=== PATIENT | female | born 1980 | race Caucasian/White ===

== ENCOUNTER 2019-04-05 14:40 | Day surgery (SDC) | payer BC ==
[2019-04-05] MEDS ORDERED: Lidocaine 1% 30 ML SDV ONE (15:02)
[2019-04-05] MEDS ORDERED: Scopolamine 1.5 MG Transdermal Patch TRDERM PRN (15:02)
[2019-04-05] MEDS ORDERED: Lidocaine 1%/Sod Bicarbonate in NS 8.4% 1 ML Syringe IDERM PRN (15:04)
[2019-04-05] MEDS ORDERED: Sodium Chloride 0.9% 10 ML Syringe FLUSH PRN (15:04)
[2019-04-05] MEDS ORDERED: Lactated Ringers 1,000 ML IV SCH (15:15)
--- NOTE | 2019-04-05 15:26 | PCM.PREANE ---
Preanesthetic Assessment - Procedure Proposed Procedure: Laparoscopic Cholecystectomy - Anesthesia/Transfusion/Family Hx Type of Anesthesia Reaction: Excessive Nausea/Vomiting Family History of Anesthesia Reaction: No - Review of Systems Gastrointestinal: No Symptoms Neurological: No Symptoms Other: Reports: None - Physical Assessment NPO Status Date: 04/04/19 NPO Status Time: 20:00 Height: 5 ft 7 in Weight: 123 kg ASA Class: 2E Mental Status: Alert & Oriented x3 Airway Class: Mallampati = 3 Dentition: Reports: Normal Dentition ROM/Head Extension: Full Lungs: Clear to Auscultation, Normal Respiratory Effort Cardiovascular: Regular Rate, Regular Rhythm - Anesthesia Plan Pre-Op Medication Ordered: Anxiolytic - Acknowledgements Anesthesia Type Planned: General Anesthesia Pt an Appropriate Candidate for the Planned Anesthesia: Yes Alternatives and Risks of Anesthesia Discussed w Pt/Guardian: Yes Pt/Guardian Understands and Agrees with Anesthesia Plan: Yes PreAnesthesia Questionnaire HEENT History: Reports: None Cardiovascular History: Reports: None Respiratory History: Reports: None Gastrointestinal History: Reports: None Genitourinary History: Reports: None 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: 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 Musculoskeletal History: Reports: None Neurological History: Reports: None, Migraines Psychiatric History: Reports: Anxiety, Depression Endocrine/Metabolic History: Reports: None, Obesity/BMI 30+ Hematologic History: Reports: None Immunologic History: Reports: None Oncologic (Cancer) History: Reports: None Dermatologic History: Reports: None - Infectious Disease History Infectious Disease History: Reports: None - Past Surgical History HEENT Surgical History: Reports: Oral Surgery GI Surgical History: Reports: Other (See Below) (lap band placed and removed) Female Surgical History: Reports: Section (X2) - History Comment History Comment: venlafaxine daily and propanolol daily, PRN meds for migraines - SUBSTANCE USE Smoking Status *Q: Never Smoker Tobacco Use Within Last Twelve Months: No Second Hand Smoke Exposure: No Recreational Drug Use History: No - CURRENT (IN HOUSE) MEDS Current Meds: Current Medications Lactated Ringer's (Ringers, Lactated) 1,000 mls @ 125 mls/hr IV ASDIRECTED [facility] Last Admin: 04/05/19 15:10 Dose: 125 mls/hr Lidocaine/Sodium Bicarbonate (Buffered Lidocaine 1% In Ns 8.4%) 0.25 ml IDERM ONETIME PRN PRN Reason: Prior to IV Start Last Admin: 04/05/19 15:10 Dose: 0.25 ml Miscellaneous Information (Remove Patch) 1 ea TRDERM Q72H SIVAKUMAR Scopolamine (Transderm-Scop) 1.5 mg TRDERM Q72H PRN PRN Reason: Nausea Last Admin: 04/05/19 15:16 Dose: 1.5 mg Sodium Chloride (Saline Flush) 10 ml FLUSH ASDIRECTED PRN PRN Reason: Keep Vein Open Discontinued Medications Lidocaine HCl (Xylocaine-Mpf 1%) Confirm Administered Dose 30 ml .ROUTE .STK- MED ONE Stop: 04/05/19 15:03
[2019-04-05] MEDS ORDERED: Propofol 200 MG/20 ML SDV ONE ×2 (15:37→16:59)
[2019-04-05] MEDS ORDERED: Ondansetron 4 MG/2 ML SDV ONE (15:37)
[2019-04-05] MEDS ORDERED: Dexamethasone 4 MG/ML 5 ML MDV ONE (15:37)
[2019-04-05] MEDS ORDERED: Rocuronium 50 MG/5 ML Vial ONE (15:37)
[2019-04-05] MEDS ORDERED: Lidocaine 1% 4 ML ONE (15:38)
[2019-04-05] MEDS ORDERED: Ketorolac 30 MG/ML SDV ONE (15:38)
[2019-04-05] MEDS ORDERED: fentaNYL 100 MCG/2 ML SDV ONE ×3 (15:38→17:34)
[2019-04-05] MEDS ORDERED: Midazolam 1 MG/ML 2 ML SDV ONE (15:41)
[2019-04-05] MEDS ORDERED: ceFAZolin 1 GM Vial ONE (15:43)
[2019-04-05] MEDS ORDERED: Ondansetron 4 MG/2 ML SDV IVPUSH PRN (16:25)
[2019-04-05] MEDS ORDERED: HYDROmorphone 0.5 MG/0.5 ML Syringe IVPUSH PRN (16:25)
[2019-04-05] MEDS ORDERED: fentaNYL 100 MCG/2 ML SDV IVPUSH PRN (16:25)
[2019-04-05] MEDS ORDERED: Lactated Ringers 1,000 ML ONE (16:26)
--- NOTE | 2019-04-05 17:59 | PCM.POSTAN ---
POST ANESTHESIA ASSESSMENT - MENTAL STATUS Mental Status: Alert, Oriented, Somnolent - VITAL SIGNS Vital Signs: Last Vital Signs 127/83, 94%, 104, 16, 98.1 POVS Temp 36.1 C 04/05/19 14:55 Pulse 91 04/05/19 14:55 Resp 16 04/05/19 14:55 BP 120/77 04/05/19 14:55 Pulse Ox 95 04/05/19 14:55 - RESPIRATORY Respiratory Status: Respiratory Rate WNL, Airway Patent, O2 Saturation Stable - CARDIOVASCULAR CV Status: Pulse Rate WNL, Blood Pressure Stable - GASTROINTESTINAL GI Status: No Symptoms - PAIN Pain Score: 0 - POST OP HYDRATION Hydration Status: Adequate & Stable
[2019-04-05] MEDS ORDERED: Promethazine 25 MG/ML SDV IM ONE (18:02)
--- NOTE | 2019-04-05 18:27 | PCM48HPAN ---
Post Anesthesia Note - EVALUATION WITHIN 48HRS OF ANESTHETIC Vital Signs in Normal Range: Yes Patient Participated in Evaluation: Yes Respiratory Function Stable: Yes Airway Patent: Yes Cardiovascular Function Stable: Yes Hydration Status Stable: Yes Pain Control Satisfactory: Yes Nausea and Vomiting Control Satisfactory: Yes Mental Status Recovered: Yes Vital Signs: Last Vital Signs Temp 36.7 C 04/05/19 17:51 Pulse 91 04/05/19 14:55 Resp 19 04/05/19 18:15 BP 132/80 04/05/19 18:15 Pulse Ox 94 L 04/05/19 18:15 - COMMENTS/OBSERVATIONS Free Text/Narrative:: Patient has refractory PONV despite scopolamine patch, zofran, dexamethasone, combined anesthetic, and IM phenergan. This appears to be a low-grade nausea. Recommend TIVA and narcotic sparing techniques going forward when able. I spoke about this with the patient and asked nursing to reinforce this observation and suggestion when the patient is more awake.
--- NOTE | 2019-04-05 18:43 | OR ---
DATE OF OPERATION: 04/05/2019 SURGEON: Brigitte Dolan MD PREOPERATIVE DIAGNOSIS: Symptomatic adenomyomatosis. POSTOPERATIVE DIAGNOSIS: 1. Symptomatic adenomyomatosis. 2. Mildly inflamed gallbladder. OPERATION PERFORMED: Laparoscopic cholecystectomy. ESTIMATED BLOOD LOSS: 5 mL. ANESTHESIA: General endotracheal. FLUIDS: 1500 mL. ASSISTANTS: This case required skilled assistants which was provided by my medical student Pj Mcdonald. The emergency medicine physician assistant helped with patient positioning, holding the camera and retractors, wound closure and wound dressing application. INDICATION AND CONSENT: The patient is a 38-year-old female who was in her usual state of health until Monday, when she started having acute right-sided abdominal pain, nausea, and vomiting. The pain persisted on 04/03/2019. The patient was not tolerating food because food was exacerbating her right upper quadrant pain. Therefore, the patient was seen in the walk-in clinic, where labs showed a mildly elevated white count of 11.5, as well as ultrasound that showed adenomyomatosis. Due to these symptoms, the patient wanted to be seen urgently for such evaluation. I saw the patient this afternoon and given her symptoms and the finding of adenomyomatosis, the patient had a diagnosis of symptomatic adenomyomatosis and cholecystectomy was offered to her. She wanted to proceed. The risks, benefits, and alternatives were discussed in detail. The patient understood and agreed to proceed and signed informed consent. DESCRIPTION OF PROCEDURE: The patient was taken to the operating room and placed on the operating room table in supine position. Following induction of general endotracheal anesthesia, the abdomen was prepped and draped in the usual sterile fashion. The patient was given Ancef for preoperative antibiotics and then a formal time- out was performed prior to the start of the procedure. We began the procedure by making an infraumbilical incision. Subcutaneous tissues were dissected bluntly with S retractors until the fascia was grasped. Then, a Veress needle was introduced in the infraumbilical position, and the abdomen was insufflated to 50 mmHg. Then, a 10-mm Optiview trocar was inserted in the infraumbilical position in direct visualization and then a 10/30 scope was placed. The abdomen was inspected. There was no injury due to Veress needle or trocar insertion. Then, attention was turned to the right upper quadrant around the gallbladder. Three additional 5 mm trocars were placed, 1 in the subxiphoid area and 2 in the right subcostal regions. Then, using graspers, the gallbladder was grasped and retracted cephalad, and the gallbladder neck was grasped and retracted as well. Using cautery and blunt dissection, the cystic duct and cystic artery were dissected and skeletonized. Then, critical view of safety was obtained. Once this was done, the cystic duct and cystic artery were clipped with 3 clips and transected in such a way that 2 clips were left in situ. Of note is that there was mild inflammation around the gallbladder neck with edema. Then, the gallbladder was dissected from the gallbladder fossa with cautery making sure not to injure the liver bed, and the gallbladder was placed in the EndoCatch bag and removed through the umbilical incision. Then, the dissection area was reinspected and no bleeding or any other abnormalities were found. The rest of the trocars were removed at this time. Then, the umbilical fascia was closed with 0 Vicryl stitches in a [id number] fashion and then the skin incisions were closed with 4-0 Monocryl stitches and Dermabond was applied. This marked the end of the procedure. At the end of the procedure, all instruments, sharps and sponges were counted and found to be correct x2. The patient was woken from general anesthesia, extubated, and taken to the PACU for further recovery in stable condition. The plan will be for the patient to be discharged today to home. The patient to have weight restriction of not lifting more than 20 pounds for 4 weeks. The patient to come back to clinic in 2 weeks for postoperative check. MMODAL /[id number] PAPA
== END 2019-04-05 21:40 | disposition home or self-care (01) ==
LOC: JD.SDS 14:40 → JD.MS 20:07 → JD.SDS 21:40
PROVIDERS: ATTEND Surgery
DX: D13.5 Benign neoplasm of extrahepatic bile ducts (principal); K81.1 Chronic cholecystitis; F32.9 Major depressive disorder, single episode, unspecified; F41.9 Anxiety disorder, unspecified; E66.9 Obesity, unspecified; Z79.899 Other long term (current) drug therapy; Z68.41 Body mass index [BMI] 40.0-44.9, adult
CPT/HCPCS: 47562; A9270; J0690; J1100; J1885; J2001; J2250; J2405; J2550; J2704; J3010; J7120; 00790